=== PATIENT | female | born 1985 | race Caucasian/White ===

== ENCOUNTER 2016-09-28 23:34 | Emergency (ER) | payer OTHER ==
[~2016-09-28] VITALS: Ht 160 cm; Wt 63.6 kg
[~2016-09-28 23:34] MED LIST: ACYCLOVIR15 GM TP; AMOX TR-K CLV1 EAC4 PO; AMOXICILLIN875 MG PO; BACTROBAN OINTM22 GM TP; BENTYL20 MG PO; Benadryl PO; CARAFATE100 MG/ML PO; DOXYCYCLINE HY100 MG PO; ENDOCET 5-3251 EACH PO; FLEXERIL10 MG PO; FLEXERIL5 MG PO; HYCODAN SYRUP480 ML PO; HYDROCODON-ACE1 EAC7 PO; IMITREX50 MG PO; NAPROSYN500 MG PO; NASONEX17 GM BOTH NARES; NEXIUM40 MG PO; NOHOMEMEDS; OXYCODONE HCL5 MG PO; PEN-VEE K,VEET500 MG PO; PREDNISONE20 MG PO; PRENATAL VITAM1 EAC3 PO; REGLAN10 MG PO; TRAMADOL HCL50 MG PO; TYLENOL WITH C1 EACH PO; ULTRAM50 MG PO; ZOFRAN4 MG PO; ZYRTEC10 M2 PO
[2016-09-29 01:11] LABS: ADD MIUA? YES; BILIRUBIN NEGATIVE; BLOOD NEGATIVE; COLOR STRAW ((YELLOW)); GLUCOSE (STRIP) NEGATIVE; KETONES NEGATIVE; LEUKOCYTES TRACE; NITRITE NEGATIVE; PROTEIN (STRIP) NEGATIVE; UROBILINOGEN 0.2 MG/DL (0.2-1.0)
[2016-09-29 01:14] LABS: MCH 26.5 PG (29.0-34.0); MCHC 32.4 G/DL (30.0-36.0); MCV 81.7 FL (83-99); MEAN PLAT.VOLUME 8.8 uM^3 (9.5-12.4); PLATELET COUNT 277 K/uL (156-360); RBC DIS.WIDTH-CV 13.4 % (11.8-14.6); RBC DIS.WIDTH-SD 39.8 % (39-53); RED BLOOD COUNT 5.02 M/uL (3.80-5.20); WHITE BLOOD COUNT 7.3 K/uL (4.1-10.2)
[2016-09-29 01:15] LABS: BACTERIA RARE /HPF; EPITHELIAL CELLS 1+ /HPF; MUCUS NONE SEEN /LPF; RED BLOOD CELLS 0-5 /HPF (0-5); UCUL ADDED? NO; WHITE BLOOD CELLS 0-5 /HPF (0-5)
[2016-09-29 01:29] LABS: CHLORIDE 109 mEq/L (99-109); POTASSIUM 3.3 mEq/L (3.7-5.4); SODIUM 142 mEq/L (136-147)
[2016-09-29 01:31] LABS: GLUCOSE 102 mg/dL (70-99)
[2016-09-29 01:33] LABS: ANION GAP 9 MEQ/L (2-14); TOTAL BILIRUBIN 0.3 mg/dL (0.0-1.0)
[2016-09-29 01:35] LABS: ALKALINE PHOSPHATASE 57 IU/L (3-129); GFR ESTIMATE (CALCULATED) > 59 mL/min/
[2016-09-29 01:36] LABS: UREA NITROGEN (BUN) 16 mg/dL (9-23)
[2016-09-29 01:45] LABS: QUANTITATIVE HCG < 4.0 MIU/ML
[2016-09-29] MEDS ORDERED: CARAFATE1 GM PO (03:10)
[2016-09-29] MEDS ORDERED: LIDOCAINE700 MG TD (03:10)
[2016-09-29 03:31] VITALS: BP 110/73
== END 2016-09-29 03:33 | disposition home or self-care (01) ==
LOC: EME 23:34
DX: R10.11 Right upper quadrant pain (principal); R14.0 Abdominal distension (gaseous); M54.9 Dorsalgia, unspecified; R11.2 Nausea with vomiting, unspecified; N39.0 Urinary tract infection, site not specified; Z87.442 Personal history of urinary calculi; F17.200 Nicotine dependence, unspecified, uncomplicated
CPT/HCPCS: 76705; 80053; 81003; 84702; 85027; 99281; 99285; J2405; J3010; J7030

== ENCOUNTER 2017-09-11 00:55 | Emergency (ER) | payer OTHER ==
[~2017-09-11] VITALS: Ht 154.9 cm; Wt 64.1 kg
[~2017-09-11 00:55] MED LIST changes: +CARAFATE1 GM PO; +LIDOCAINE700 MG TD
[2017-09-11 01:18] LABS: APPEARANCE SL.HAZY ((CLEAR)); BILIRUBIN NEGATIVE; BLOOD NEGATIVE; COLOR YELLOW ((YELLOW)); GLUCOSE (STRIP) NEGATIVE; KETONES NEGATIVE; LEUKOCYTES NEGATIVE; NITRITE POSITIVE; PROTEIN (STRIP) NEGATIVE; UROBILINOGEN 0.2 MG/DL (0.2-1.0)
[2017-09-11 01:23] LABS: BACTERIA 3+ /HPF; EPITHELIAL CELLS 2+ /HPF; HYALINE CASTS 0-5 /LPF; MUCUS NONE SEEN /LPF; RED BLOOD CELLS 0-5 /HPF (0-5); UCUL ADDED? YES
[2017-09-11 01:36] LABS: HEMATOCRIT 39.9 % (36.0-46.0); HEMOGLOBIN 13.4 G/DL (11.9-15.5); MCH 27.2 PG (29.0-34.0); MCHC 33.6 G/DL (30.0-36.0); MCV 81.1 FL (83-99); PLATELET COUNT 324 K/uL (156-360); RBC DIS.WIDTH-CV 13.5 % (11.8-14.6); RBC DIS.WIDTH-SD 39.9 % (39-53); RED BLOOD COUNT 4.92 M/uL (3.80-5.20); WHITE BLOOD COUNT 10.7 K/uL (4.1-10.2)
[2017-09-11 01:46] LABS: ALBUMIN 4.1 g/dL (3.2-4.8); CHLORIDE 102 mEq/L (99-109); POTASSIUM 3.5 mEq/L (3.7-5.4); SODIUM 135 mEq/L (136-147)
[2017-09-11 01:49] LABS: GLUCOSE 93 mg/dL (70-99); TOTAL PROTEIN 7.1 g/dL (6.4-8.3)
[2017-09-11 01:51] LABS: TOTAL BILIRUBIN 0.4 mg/dL (0.0-1.0)
[2017-09-11 01:52] LABS: ALKALINE PHOSPHATASE 63 IU/L (3-129); CREATININE 0.8 mg/dL (0.6-1.3); GFR ESTIMATE (CALCULATED) > 59 mL/min/
[2017-09-11 01:53] LABS: UREA NITROGEN (BUN) 15 mg/dL (9-23)
[2017-09-11 01:54] LABS: AST (GOT) 15 IU/L (2-34)
[2017-09-11 01:55] LABS: ALT (GPT) 28 IU/L (3-49)
[2017-09-11] MEDS ORDERED: KEFLEX500 MG PO (02:19)
[2017-09-11 02:39] VITALS: BP 135/89
[2017-09-11 02:47] LABS: QUANTITATIVE HCG 111830.6 MIU/ML
== END 2017-09-11 02:40 | disposition home or self-care (01) ==
LOC: EME 00:55
DX: O23.41 Unspecified infection of urinary tract in pregnancy, first trimester (principal); B96.20 Unspecified Escherichia coli [E. coli] as the cause of diseases classified elsewhere; O13.1 Gestational [pregnancy-induced] hypertension without significant proteinuria, first trimester; O99.331 Smoking (tobacco) complicating pregnancy, first trimester; F17.200 Nicotine dependence, unspecified, uncomplicated; Z3A.08 8 weeks gestation of pregnancy; Z87.442 Personal history of urinary calculi; Z88.6 Allergy status to analgesic agent
CPT/HCPCS: 80053; 81003; 84702; 85027; 87077; 87086; 87186; 99281; 99284

== ENCOUNTER 2017-09-14 11:58 | Outpatient (CLI) | payer OTHER ==
[~2017-09-14 11:58] MED LIST changes: +KEFLEX500 MG PO
[2017-09-14 12:38] VITALS: BP 117/67
[2017-09-14 12:47] LABS: BASOPHIL (%) 0.4 % (0-1); EOSINOPHIL (%) 0.4 % (0-5); HEMATOCRIT 43.5 % (36.0-46.0); HEMOGLOBIN 14.4 G/DL (11.9-15.5); IMMATURE GRANULOCYTE (%) 0.4 % (0.0-0.7); LYMPHOCYTE (%) 19.1 % (15-42); LYMPHOCYTE COUNT 1.5 K/uL (1.0-2.8); MCH 26.9 PG (29.0-34.0); MCHC 33.1 G/DL (30.0-36.0); MCV 81.2 FL (83-99); MONOCYTE (%) 5.1 % (3-12); MONOCYTE COUNT 0.4 K/uL (0-0.8); NEUTROPHIL (%) 74.6 % (45-76); NEUTROPHIL COUNT 5.7 K/uL (1.8-6.4); PLATELET COUNT 269 K/uL (156-360); RBC DIS.WIDTH-CV 13.7 % (11.8-14.6); RBC DIS.WIDTH-SD 40.4 % (39-53); RED BLOOD COUNT 5.36 M/uL (3.80-5.20); WHITE BLOOD COUNT 7.7 K/uL (4.1-10.2)
[2017-09-14 18:32] VITALS: BP 115/70
[2017-09-14 22:18] VITALS: BP 116/64
[2017-09-15 02:28] VITALS: BP 117/74
[2017-09-15] MEDS ORDERED: KEFLEX500 MG PO (08:39)
[2017-09-15 08:57] VITALS: BP 120/73
== END 2017-09-15 09:25 | disposition home or self-care (01) ==
LOC: LDRP-OP 11:58 → 2WEST 11:59
PROVIDERS: Obstetrics & Gynecology
DX: O23.01 Infections of kidney in pregnancy, first trimester (principal); Z3A.08 8 weeks gestation of pregnancy; Z87.442 Personal history of urinary calculi; O99.281 Endocrine, nutritional and metabolic diseases complicating pregnancy, first trimester; E86.0 Dehydration
CPT/HCPCS: 76770; 85025; G0378; J0696; J7120

== ENCOUNTER 2017-10-16 17:23 | Emergency (ER) | payer OTHER ==
[~2017-10-16] VITALS: Ht 154.9 cm; Wt 63.3 kg
[2017-10-16] MEDS ORDERED: TYLENOL WITH C1 EACH PO (19:51)
[2017-10-16] MEDS ORDERED: ANECREAM30 GM TP (19:58)
[2017-10-16 20:27] VITALS: BP 117/96
== END 2017-10-16 20:29 | disposition home or self-care (01) ==
LOC: EME 17:23
PROC: 0D9P7ZZ Drainage of Rectum, Via Natural or Artificial Opening (ICD-10-PCS; principal; 2017-10-16)
DX: O22.41 Hemorrhoids in pregnancy, first trimester (principal); Z3A.13 13 weeks gestation of pregnancy; Z88.6 Allergy status to analgesic agent
CPT/HCPCS: 99281; 99284